=== PATIENT | female | born 2000 | race Caucasian/White ===

== ENCOUNTER 2019-05-25 16:15 | Emergency (ER) | payer BC ==
[2019-05-25 17:08] VITALS: BP 127/73
--- NOTE | 2019-05-25 17:35 | UC ---
Respiratory Complaint HPI - HPI Summary HPI Summary: pt c/o nasal congestion, cough, sore throat for the past 3 weeks. ears feel clogged but dont hurt. - History of Current Complaint Chief Complaint: UCRespiratory Stated Complaint: UPPER RESPIRATORY Time Seen by Provider: 05/25/19 17:30 Hx Obtained From: Patient Hx Last Menstrual Period: 05/04/19 Pain Intensity: 0 Aggravating Factors: Nothing Alleviating Factors: Nothing - Allergies/Home Medications Allergies/Adverse Reactions: Allergies Allergy/AdvReac Type Severity Reaction Status Date / Time No Known Allergies Allergy Verified 05/25/19 17:08 Home Medications: Home Medications Cetirizine* [ZyrTEC 10 MG TAB*] 1 tab 05/25/19 [History] Melatonin [Ra Melatonin] 13 mg PO 05/25/19 [History] QUEtiapine TAB* [Seroquel 300 MG TAB*] 300 mg PO DAILY 05/25/19 [History Confirmed 05/25/19] lamoTRIgine [Lamictal] 150 mg PO 05/25/19 [History] PMH/Surg Hx/FS Hx/Imm Hx - Additional Past Medical History Additional PMH: bipolar Previously Healthy: Yes - Surgical History Surgical History: Yes Surgery Procedure, Year, and Place: [place] knee surger, ficka removal, lateral release, scar tissue removed. ocipital nerve surgery - Social History Alcohol Use: Weekly Substance Use Type: None Smoking Status (MU): Never Smoked Tobacco Review of Systems All Other Systems Reviewed And Are Negative: Yes Constitutional: Negative: Fever, Chills, Fatigue Skin: Negative: Rash ENT: Positive: Other - laryngitis. Negative: Sore Throat Respiratory: Positive: Cough. Negative: Shortness Of Breath Cardiovascular: Positive: Negative Neurological: Negative: Headache Physical Exam Triage Information Reviewed: Yes Appearance: Well-Appearing Vital Signs: Initial Vital Signs Temp 99.5 F 05/25/19 17:03 Pulse 73 05/25/19 17:03 Resp 18 05/25/19 17:03 BP 127/73 05/25/19 17:03 Pulse Ox 98 05/25/19 17:03 Vital Signs Reviewed: Yes Eyes: Positive: Conjunctiva Clear ENT: Positive: Pharynx normal, TMs normal, Uvula midline Neck exam: Normal Respiratory Exam: Normal Cardiovascular Exam: Normal Neurological: Positive: Alert Respiratory Course/Dx - Course Course Of Treatment: cough, nasal congestion , loss of voice for approx 3 wks w/ varying degrees of worsening. No days of being symptoms free. On exam no signs of pneumonia and vitals good. Plan is to tx for possible bacterial source but I suspect viral etiology. 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 - Differential Dx/Diagnosis Differential Diagnosis/HQI/PQRI: Bronchitis, Lower Resp Infection, Other Provider Diagnosis: URI (upper respiratory infection) Discharge ED - Sign-Out/Discharge Documenting (check all that apply): Patient Departure All imaging exams completed and their final reports reviewed: No Studies - Discharge Plan Condition: Good Disposition: HOME Prescriptions: Azithromycin TAB* [Zithromax TAB (Z-PETERSON) 250 mg #6 tabs] 2 tab PO .TODAY, THEN 1 DAILY #1 peterson Patient Education Materials: Upper Respiratory Infection (DC) Referrals: No Primary Care Phys,NOPCP [Primary Care Provider] - Additional Instructions: please keep hydrated. - Billing Disposition and Condition Condition: GOOD Disposition: Home - Attestation Statements Provider Attestation: I was available for consult. This patient was seen by the KR[facility]. The patient was not presented to , seen by or examined by dc -Gilberto Euceda MD
== END 2019-05-25 17:53 | disposition home or self-care (01) ==
LOC: UCCORT 16:15
DX: J06.9 Acute upper respiratory infection, unspecified (principal)
CPT/HCPCS: 99202; G0463